=== PATIENT | female | born 1965 | race Caucasian/White ===

== ENCOUNTER 2022-09-27 11:38 | Day surgery (SDC) | payer OTHER ==
[~2022-09-27] VITALS: Ht 165.1 cm; Wt 79.4 kg
[2022-09-27] MEDS ORDERED: fentaNYL citrate 0.05 MG/ML VIAL ONE (12:57)
[2022-09-27] MEDS ORDERED: LIDOCAINE 2% 100 MG/5 ML UJET TP ONE (12:57)
[2022-09-27] MEDS ORDERED: fentaNYL citrate 0.05 MG/ML VIAL IVP ONE (13:55)
== END 2022-09-27 13:00 | disposition home or self-care (01) ==
LOC: MDS 11:38 → MMU 11:40 → MDS 13:00
PROVIDERS: ATTEND Internal Medicine Gastroenterology
DX: Z12.11 Encounter for screening for malignant neoplasm of colon (principal); K57.30 Diverticulosis of large intestine without perforation or abscess without bleeding; Z85.3 Personal history of malignant neoplasm of breast
CPT/HCPCS: 45378; J3010